=== PATIENT | female | born 1970 | race Caucasian/White ===

== ENCOUNTER 2017-03-14 08:40 | Day surgery (SDC) | payer BC ==
[~2017-03-14 08:40] MED LIST: PROPOFOL INJ 200 MG/20 ML VIAL IV ONE
[2017-03-14 10:39] VITALS: BP 100/62
--- NOTE | 2017-03-14 13:34 | Operative Report ---
Operative Report DATE OF SURGERY: 03/14/17 Operative Report: The risks, benefits and alternatives of the procedure including risks of bleeding, perforation requiring surgery are explained to the patient detail and informed consent was obtained. Patient was taken back to the endoscopy suite and placed in the left, lateral decubital position. Timeout was called. Propofol medications administered. A rectal examination was done which did not reveal any masses, tears or fissures. An Olympus video scope was inserted into the patient's rectum. The scope was then carefully advanced all the way to the cecum. The cecum site identified by the usual anatomical landmarks including the ileocecal valve as well as appendiceal office. Photodocumentation was obtained. Prep was good. The scope was then sequentially pulled back via the various segments of the colon including the ascending colon, hepatic flexure, transverse colon, splenic flexure, descending colon and finding to the rectosigmoid portions of the colon. Retroflexion maneuver was performed. The risks benefits and alternatives of the procedure explained to the patient in detail and informed consent is obtained.A back GIF Olympus video scope was inserted into the patient's mouth and hypopharynx, the esophagus is identified intubated and insufflated, the scope was then advanced through the esophagus stomach and duodenum, retroflexion maneuver is done, the esophagus stomach and first and second portions of the duodenum examined PREOPERATIVE DIAGNOSIS: Family history of colorectal cancer. Extra esophageal symptoms of gastroesophageal reflux disease POSTOPERATIVE DIAGNOSIS: Colon polyp noted in the rectum status post biopsy for removal. Internal hemorrhoids. Mild gastritis status post biopsy mucosal specimens obtained, rule out Helicobacter pylori OPERATION: Colonoscopy with biopsy. EGD with biopsy SURGEON: MEENU TALBOT ANESTHESIA: LMAC TISSUE REMOVED OR ALTERED: As noted above. COMPLICATIONS: None. ESTIMATED BLOOD LOSS: None. INTRAOPERATIVE FINDINGS: As described above. PROCEDURE: Patient tolerated the procedure well. No immediate postprocedure complications are noted. Patient discharged in good condition. Discharge date 03/14/2017. Discharge diet: Regular. Discharge activity: Regular. 2-3 week follow-up to discuss findings. Patient is instructed to call the office or proceed to the emergency room should there be any further problems or questions. We will wait on pathology. 5 year surveillance colonoscopy.
== END 2017-03-14 10:55 | disposition home or self-care (01) ==
LOC: END 08:40
PROVIDERS: ATTEND Internal Medicine Gastroenterology
PROC: 0DB68ZX Excision of Stomach, Via Natural or Artificial Opening Endoscopic, Diagnostic (ICD-10-PCS; principal; 2017-03-14 11:00)
PROC: 0DBP8ZX Excision of Rectum, Via Natural or Artificial Opening Endoscopic, Diagnostic (ICD-10-PCS; 2017-03-14 11:00)
DX: D12.7 Benign neoplasm of rectosigmoid junction (principal); K64.8 Other hemorrhoids; Z80.0 Family history of malignant neoplasm of digestive organs; K29.70 Gastritis, unspecified, without bleeding; K21.9 Gastro-esophageal reflux disease without esophagitis; Z79.899 Other long term (current) drug therapy; Z85.3 Personal history of malignant neoplasm of breast
CPT/HCPCS: 43239; 45380; 88305 ×2; J2704; 810

== ENCOUNTER 2019-02-12 18:56 | Emergency (ER) | payer BC ==
[2019-02-12 19:27] VITALS: BP 118/85
[2019-02-12] MEDS ORDERED: DIPH/PERTUSS(ACELL)/TETANUS VAC/PF 0.5 ML SYR (>=10YO) IM ONE (20:16)
== END 2019-02-12 21:03 | disposition left against medical advice (07) ==
LOC: ER 18:56
DX: Z53.21 Procedure and treatment not carried out due to patient leaving prior to being seen by health care provider (principal)

== ENCOUNTER 2019-07-16 07:11 | Day surgery (SDC) | payer BC ==
[2019-07-16] MEDS ORDERED: PROPOFOL INJ 200 MG/20 ML VIAL IV ONE (08:05)
[2019-07-16 09:19] VITALS: BP 109/76
--- NOTE | 2019-07-16 12:38 | Operative Report ---
Operative Report DATE OF SURGERY: 07/16/19 Operative Report: The risks benefits and alternatives of the procedure explained to the patient in detail and informed consent is obtained .A GIF Olympus video scope was inserted into the patient's mouth and hypopharynx ,the esophagus is identified intubated and insufflated ,the scope was then advanced through the esophagus stomach and duodenum ,retroflexion maneuver is done, the esophagus stomach and first and second portions of the duodenum examined PREOPERATIVE DIAGNOSIS: Abdominal distention, dyspepsia POSTOPERATIVE DIAGNOSIS: Esophagitis versus Rodriguez's status post biopsy. Gastritis status post biopsy without Helicobacter pylori. Hiatal hernia OPERATION: EGD with biopsy SURGEON: MEENU TALBOT ANESTHESIA: LMAC TISSUE REMOVED OR ALTERED: As noted above. COMPLICATIONS: None. ESTIMATED BLOOD LOSS: None. INTRAOPERATIVE FINDINGS: As noted above. PROCEDURE: Patient tolerated the procedure well. No immediate postprocedure complications are noted. Patient is discharged in good condition. Discharge date 07/16/2019. Discharge diet: Regular. Discharge activity: Regular. 2 to 3-week follow-up to discuss findings. Patient is instructed to call the office or proceed to the emergency room should there be any further problems or questions.
== END 2019-07-16 09:16 | disposition home or self-care (01) ==
LOC: END 07:11
PROVIDERS: ATTEND Internal Medicine Gastroenterology
DX: K21.9 Gastro-esophageal reflux disease without esophagitis (principal); K44.9 Diaphragmatic hernia without obstruction or gangrene; K29.50 Unspecified chronic gastritis without bleeding; Z85.3 Personal history of malignant neoplasm of breast
CPT/HCPCS: 43239; 88342 ×2; 88305 ×2; 00731; J2704; 731

== ENCOUNTER → 2020-08-08 | Outpatient (CLI) | payer BC ==
--- NOTE | 2020-08-08 10:54 | WOMENS IMAGING REPORT ---
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 LIMITATIONS: None. FINDINGS: LUMBAR SPINE: The bone mineral density (BMD) measured from L1-L4 in the AP projection correlates with a T-score of 0.3, which is normal as defined by the World Health Organization. BMD Change vs Baseline: 2.4%. HIP: The bone mineral density (BMD) measured in the left hip correlates with a T-score of -0.9, which is n ormal as defined by the World Health Organization. BMD Change vs Baseline: -4.3% 10 year Fracture Risk Assessment: Major Osteoporotic Fracture: Not available. Hip Fracture: Not available. IMPRESSION: 1. LUMBAR SPINE WHO CLASSIFICATION: NORMAL. 2. HIP WHO CLASSIFICATION: NORMAL. OVERALL ASSESSMENT: WHO CLASSIFICATION: NORMAL. COMMENT: The World Health Organization defines low BMD as follows: T-score: Normal: At or above -1.0 Osteopenia: Between -1.0 and -2.5 Osteoporosis: At or below -2.5 without fractures Established osteoporosis: At or below -2.5 with fractures In general, you may wish to consider: Diagnosis Treatment Follow-up DEXA Normal BMD Prevention 2-3 years Osteopenia Prevention/Therapy 1-2 years Osteoporosis Therapy Yearly TECHNICAL DOCUMENTATION: JOB ID: [id number] [employer]- All Rights Reserved Reading location - IP/workstation name: [email or web address]
== END ==
LOC: WI 10:07
PROVIDERS: ATTEND Internal Medicine
DX: Z13.820 Encounter for screening for osteoporosis (principal); Z79.811 Long term (current) use of aromatase inhibitors
CPT/HCPCS: 77080

== ENCOUNTER 2020-08-12 08:02 | Day surgery (SDC) | payer BC ==
--- NOTE | 2020-08-12 09:58 | Operative Report ---
Operative Report DATE OF SURGERY: 08/12/20 Operative Report: The risk, benefits and alternatives of the procedure including the risk of bleeding, perforation requiring surgery have been explained to the patient in detail and informed consent has been obtained. Patient is taken back to the endoscopy suite and placed in left, lateral decubital position. Timeout was called. Propofol medication is administered. Rectal examination is performed and no masses, tears or fissures are noted. The colonoscope was then inserted into the patient's rectum and subsequently insufflated all the way to the cecum. Cecum was identified by the usual anatomical landmarks of the ileocecal valve as well as the appendiceal office. Photodocumentation is is obtained. Scope was then sequentially pulled back via the various segments of the colon including the ascending colon, hepatic flexure, transverse colon, splenic flexure, descending colon finally in to the rectosigmoid portions of the colon. Retroflexion maneuver is performed. The risks benefits and alternatives of the procedure explained to the patient in detail and informed consent is obtained.A GIF Olympus video scope was inserted into the patient's mouth and hypopharynx, the esophagus is identified intubated and insufflated, the scope was then advanced through the esophagus stomach and duodenum, retroflexion maneuver is done the esophagus stomach and first and second portions of the duodenum examined PREOPERATIVE DIAGNOSIS: Blood in stool, colorectal cancer screening. Gastroesophageal reflux disease POSTOPERATIVE DIAGNOSIS: Normal screening. Mild internal hemorrhoids. Gastritis status post biopsy OPERATION: Diagnostic colonoscopy. EGD with biopsy SURGEON: MEENU TALBOT ANESTHESIA: LMAC TISSUE REMOVED OR ALTERED: As noted above. COMPLICATIONS: None. ESTIMATED BLOOD LOSS: None. INTRAOPERATIVE FINDINGS: As noted above. PROCEDURE: Patient tolerated the procedure well. No immediate postprocedure complications are noted. Patient is discharged in good condition. Discharge date 08/12/2020. . Discharge diet: Regular. Discharge activity: Regular. 2 to 3-week follow-up to discuss findings. Wait on the pathology. 5-year surveillance colonoscopy.
[2020-08-12 10:10] VITALS: BP 94/55
== END 2020-08-12 10:23 | disposition home or self-care (01) ==
LOC: END 08:02
PROVIDERS: ATTEND Internal Medicine Gastroenterology
DX: K29.50 Unspecified chronic gastritis without bleeding (principal); K64.8 Other hemorrhoids; Z80.0 Family history of malignant neoplasm of digestive organs; Z85.3 Personal history of malignant neoplasm of breast
CPT/HCPCS: 43239; 45378; 88305 ×2; 00813; J2704; 813

== ENCOUNTER → 2020-09-19 | Outpatient (CLI) | payer BC ==
--- NOTE | 2020-09-19 20:27 | XCELERA REPORT ---
[address] [address] Transthoracic Echocardiogram Report Name: CHUCK HERRERA Age: 50 yrs Gender: Female : 1970 Patient Status: Outpatient Patient Location: Study Date: 09/19/2020 08:13 AM History: CAD Height: 63 in Weight: 150 lb BSA: 1.7 m2 Procedure: A complete two-dimensional transthoracic echocardiogram was performed (2D, M-mode, spectral and color flow Doppler). The study was technically difficult with many images being suboptimal in quality. Reason For Study: ISCHEMIC HEART DISEASE Previous Evaluation: No previous studies were available. History: CAD. Ordering Physician: AMSIH PERALTA Performed By: Orly Acevedo Interpretation Summary Left ventricular systolic function is low normal. The Ejection Fraction estimate is 50-55% The right ventricle is normal in size and function. There is a trace amount of mitral regurgitation There is no aortic valve stenosis There is a trace amount of tricuspid regurgitation There is no pericardial effusion. MMode/2D Measurements & Calculations RVDd: 2.8 cm LVIDd: 4.4 cm FS: 28.6 % Ao root diam: 2.5 cm IVSd: 0.98 cm LVIDs: 3.2 cm EDV(Teich): Ao root area: LVPWd: 0.86 cm 88.5 ml 4.8 cm2 ESV(Teich): 39.5 ml EF(Teich): 55.4 % EDV(MOD-sp4): SV(MOD-sp4): 81.0 ml 39.6 ml ESV(MOD-sp4): 41.4 ml EF(MOD-sp4): 48.9 % Doppler Measurements & Calculations MV E max ghassan: MV dec slope: Ao V2 max: LV V1 max P.5 cm/sec 131.8 cm/sec 3.8 mmHg MV A max ghassan: 264.6 cm/sec2 Ao max PG: LV V1 max: 74.6 cm/sec MV dec time: 0.24 sec6.9 mmHg 97.8 cm/sec MV E/A: 0.86 PA V2 max: TR max ghassan: 80.9 cm/sec 171.7 cm/sec PA max P.6 mmHg TR max P.3 mmHg Left Ventricle The left ventricle is normal in size. There is normal left ventricular wall thickness. The Ejection Fraction estimate is 50-55%. Left ventricular systolic function is low normal. Doppler measurements suggest impaired left ventricular relaxation, which is associated with grade I/IV or mild diastolic dysfunction. Regional wall motion abnormalities cannot be excluded due to limited visualization. Right Ventricle The right ventricle is normal in size and function. Atria The right atrium is normal. The left atrial size is normal. The interatrial septum is intact with no evidence for an atrial septal defect. There is no Doppler evidence for an interatrial shunt. Mitral Valve The mitral valve is grossly normal. There is no evidence of mitral valve prolapse. There is no mitral valve stenosis. There is a trace amount of mitral regurgitation. Aortic Valve The aortic valve is not well visualized secondary to technical limitations. The aortic valve opens well. There is no aortic valve stenosis. No aortic regurgitation is present. Tricuspid Valve The tricuspid valve is not well visualized secondary to technical limitations. There is a trace amount of tricuspid regurgitation. Tricuspid regurgitation jet envelope not well defined to measure RV systolic pressure accurately. Pulmonic Valve The pulmonic valve is not well visualized. There is a trace amount of pulmonic regurgitation. Great Vessels The aortic root is normal size. The inferior vena cava appeared normal and decreased > 50% with respiration (RAP 5-10 mmHg). Effusions There is no pericardial effusion. : AMISH PERALTA Anil
== END ==
LOC: SP 07:49
PROVIDERS: ATTEND Physician Assistant
DX: E78.1 Pure hyperglyceridemia (principal); I25.9 Chronic ischemic heart disease, unspecified; Z82.49 Family history of ischemic heart disease and other diseases of the circulatory system
CPT/HCPCS: 93306